=== PATIENT | male | born 1980 | race Caucasian/White ===

== ENCOUNTER 2016-06-29 08:37 | Emergency (ER) | payer MEDICARE, MEDICAID ==
[~2016-06-29] VITALS: Ht 180.3 cm; Wt 108.9 kg
[~2016-06-29 08:37] MED LIST: ENDO7.5T7 PO; IBUP400T OR; PRIL20CA OR; VITAMIN D50000 UNT OR
[2016-06-29] MEDS ORDERED: GABA-279 (08:48)
[2016-06-29] MEDS ORDERED: DRON10CA4 (08:48)
[2016-06-29] MEDS ORDERED: CITA20TA4 (08:48)
[2016-06-29] MEDS ORDERED: MUCI1TAB18 PO (08:48)
[2016-06-29] MEDS ORDERED: predniSONE 50 MG TAB PO ONE (09:00)
[2016-06-29] MEDS ORDERED: ALBUTEROL SULFATE 2.5 MG/0.5 ML INH NEB SOLN INH ONE (09:00)
[2016-06-29] MEDS ORDERED: IPRATROPIUM 0.5MG/ALBUTEROL 2.5MG INH SOL UD 3ML (DUONEB)(J7620) NEB ONE (09:00)
[2016-06-29] MEDS ORDERED: predniSONE 20 MG TAB As Ordered ONE (09:12)
[2016-06-29] MEDS ORDERED: PRED20TA PO (09:57)
[2016-06-29] MEDS ORDERED: ADVA115A INH (09:58)
[2016-06-29] MEDS ORDERED: ALBU17IN INH (09:58)
--- NOTE | 2016-06-29 09:59 | REP ---
CHEST: Two views. There is no evidence of acute infiltrate. No pleural effusion is seen. The heart is normal in size. The mediastinal silhouette is unremarkable. The visualized osseous structures are intact. IMPRESSION: No acute pulmonary disease. Signed by Maximino Villatoro MD 06/29/2016 07:57 P
[2016-06-29 10:04] VITALS: BP 138/83
== END 2016-06-29 10:09 | disposition home or self-care (01) ==
LOC: M ED 09:25
DX: J45.901 Unspecified asthma with (acute) exacerbation (principal); F41.9 Anxiety disorder, unspecified; F33.9 Major depressive disorder, recurrent, unspecified; G35 Multiple sclerosis; E07.9 Disorder of thyroid, unspecified; Z79.899 Other long term (current) drug therapy; Z79.51 Long term (current) use of inhaled steroids; F17.210 Nicotine dependence, cigarettes, uncomplicated

== ENCOUNTER 2016-07-10 01:22 | Emergency (ER) | payer MEDICARE, MEDICAID ==
[~2016-07-10] VITALS: Ht 180.3 cm; Wt 108.9 kg
[~2016-07-10 01:22] MED LIST changes: +ADVA115A INH; +ALBU17IN INH; +CITA20TA4; +DRON10CA4; +GABA-279; +MUCI1TAB18 PO; +PRED20TA PO
[2016-07-10] MEDS ORDERED: OLOPATADINE 0.1% OPHTH SOL 5ML(PATANOL) OD ONE (04:15)
[2016-07-10 04:34] VITALS: BP 119/78
== END 2016-07-10 04:38 | disposition home or self-care (01) ==
LOC: M ED 02:26
DX: H10.31 Unspecified acute conjunctivitis, right eye (principal); Z79.51 Long term (current) use of inhaled steroids; Z79.899 Other long term (current) drug therapy

== ENCOUNTER → 2016-07-19 | Outpatient (REF) | payer MEDICARE, MEDICAID ==
[2016-07-19 16:28] LABS: ALBUMIN 3.8 GM/DL (3.2-5.2); ALBUMIN/GLOBULIN RATIO 1.12 (1.00-1.93); ALKALINE PHOSPHATASE 82 U/L (45-117); ALT/SGPT 29 U/L (12-78); ANION GAP 7 MEQ/L (8-16); AST/SGOT 13 U/L (15-37); BILIRUBIN,TOTAL 0.3 MG/DL (0.2-1.0); BLOOD UREA NITROGEN 14 MG/DL (7-18); CALCIUM LEVEL 9.1 MG/DL (8.5-10.1); CARBON DIOXIDE LEVEL 29 MEQ/L (21-32); CHLORIDE LEVEL 103 MEQ/L (98-107); CREATININE FOR GFR 1.01 MG/DL (0.70-1.30); FREE T4 1.15 NG/DL (0.76-1.46); GLOMERULAR FILTRATION RATE > 60.0 (>60); GLUCOSE, FASTING 101 MG/DL (70-105); POTASSIUM SERUM 4.2 MEQ/L (3.5-5.1); SODIUM LEVEL 139 MEQ/L (136-145); TOTAL PROTEIN 7.2 GM/DL (6.4-8.2)
== END ==
LOC: M SFHCPLAZ 14:00
DX: E66.9 Obesity, unspecified (principal); E55.9 Vitamin D deficiency, unspecified; Z79.899 Other long term (current) drug therapy
CPT/HCPCS: 36415; 80053; 82306; 83036; 84439; 84443; G0463

== ENCOUNTER → 2016-09-11 | Outpatient (CLI) | payer MEDICARE, MEDICAID ==
[~2016-09-11] VITALS: Ht 180.3 cm; Wt 113.4 kg
[~2016-09-11] MED LIST changes: -DRON10CA4; +DRON10CA4 PO; +GILE1CAP PO; +LIDOCAINE 2% INJ 100 MG/5 ML SDV (FOR ANES.) As Ordered ONE; +NS 1,000 ML IV ONE; +PROPOFOL 200 MG/20 ML VIAL As Ordered ONE
--- NOTE | 2016-09-11 14:04 | ROOR ---
Patient Name: John Hatfield Procedure Date: 09/11/2016 1:53 PM Date of : 1980 Age: 35 Room: [facility] Gender: Male Note Status: Finalized Procedure: Upper GI endoscopy Indications: Heartburn Providers: Fred STRAUSS MD Referring MD: DOMINIC WONG Geovanni [facility] DOMINIC Cross Requesting Provider: Medicines: Monitored Anesthesia Care Complications: No immediate complications. Procedure: Pre-Anesthesia Assessment: - The heart rate, respiratory rate, oxygen saturations, blood pressure, adequacy of pulmonary ventilation, and response to care were monitored throughout the procedure. The Endoscope was introduced through the mouth, and advanced to the second part of duodenum. The upper GI endoscopy was accomplished without difficulty. The patient tolerated the procedure well. Findings: The esophagus was normal. The stomach was normal. The examined duodenum was normal. Impression: - Normal esophagus. - Normal stomach. - Normal examined duodenum. - No specimens collected. Recommendation: - Use Prilosec (omeprazole) 20 mg PO daily for 3 months. - Follow an antireflux regimen. - (the script was sent to your pharmacy on file) Fred Strauss MD Fred STRAUSS MD 09/11/2016 2:04:35 PM This report has been signed electronically. Number of Addenda: 0 Note Initiated On: 09/11/2016 1:53 PM Estimated Blood Loss: Estimated blood loss: none.
[2016-09-11 14:25] VITALS: BP 114/82
== END | disposition home or self-care (01) ==
LOC: M OPP 12:40
PROVIDERS: ATTEND Internal Medicine Gastroenterology
DX: R12 Heartburn (principal); M25.60 Stiffness of unspecified joint, not elsewhere classified; Z87.19 Personal history of other diseases of the digestive system; G35 Multiple sclerosis; F32.9 Major depressive disorder, single episode, unspecified; F41.9 Anxiety disorder, unspecified; J45.909 Unspecified asthma, uncomplicated; R06.83 Snoring; G47.30 Sleep apnea, unspecified; Z79.899 Other long term (current) drug therapy; Z88.8 Allergy status to other drugs, medicaments and biological substances

== ENCOUNTER → 2017-03-11 | Outpatient (CLI) | payer MEDICARE, MEDICAID ==
[~2017-03-11] MED LIST changes: -ADVA115A INH; -ALBU17IN INH; -CITA20TA4; -DRON10CA4 PO; -ENDO7.5T7 PO; -GABA-279; -GILE1CAP PO; -IBUP400T OR; -LIDOCAINE 2% INJ 100 MG/5 ML SDV (FOR ANES.) As Ordered ONE; -MUCI1TAB18 PO; -NS 1,000 ML IV ONE; -PRED20TA PO; -PRIL20CA OR; +PROHANCE 279.3MG/ML 15ML VIAL (A9576) As Ordered; +PROHANCE 279.3MG/ML 5ML VIAL (A9576) As Ordered; -PROPOFOL 200 MG/20 ML VIAL As Ordered ONE; -VITAMIN D50000 UNT OR
== END ==
LOC: M RAD 12:42
DX: G35 Multiple sclerosis (principal); M47.812 Spondylosis without myelopathy or radiculopathy, cervical region
CPT/HCPCS: A9576

== ENCOUNTER → 2018-04-25 | Outpatient (CLI) | payer MEDICARE, MEDICAID ==
[~2018-04-25] MED LIST changes: +ADVA115A INH; +ALBU17IN INH; +CITA20TA4; +DRON1CAP3 PO; +ENDO7.5T7 PO; +GABA-1171; +GILE1CAP PO; +IBUP400T OR; +MUCI1TAB18 PO; +PRED20TA PO; +PRIL20CA OR; -PROHANCE 279.3MG/ML 15ML VIAL (A9576) As Ordered; +PROHANCE 279.3MG/ML 15ML VIAL (A9576) As Ordered ONE; -PROHANCE 279.3MG/ML 5ML VIAL (A9576) As Ordered; +PROHANCE 279.3MG/ML 5ML VIAL (A9576) As Ordered ONE; +VITAMIN D50000 UNT OR
--- NOTE | 2018-04-25 18:48 | REP ---
MRI brain without and with IV gadolinium: History: Multiple sclerosis. Comparison study: 11 March 2017. Technique: Axial and sagittal imaging planes are utilized for T1 and T2-weighted scans. Sequences include spin-echo, fast spin echo, FLAIR, and diffusion weighted sequences. Gadolinium enhancement dose is 20 ml of intravenous ProHance. MRI findings: Bony calvarium remains intact. Craniocervical junction and upper cervical cord are normal. No intraorbital or paranasal sinus disease is appreciated. There are several foci of periventricular and subcortical T2 hyperintensity in the parietal lobes and frontal lobes. These are unchanged in number in the interval since the March 11, 2017 study. No change in size. There is no corresponding T1 hypointensity. There is no evidence acute ischemia. No extra-axial fluid collection or mass lesion is seen. Postcontrast images show no abnormal gadolinium enhancement in any of the T2 hyperintense lesions. No other abnormal gadolinium enhancement is seen. Impression: Findings consistent with MS. Findings are stable from the most recent prior study of 11 March 2017. Electronically Signed by Rodolfo Castellanos MD 04/25/2018 07:09 P
--- NOTE | 2018-04-28 08:50 | REP ---
MR CERVICAL SPINE WITHOUT CONTRAST: HISTORY: Multiple sclerosis. CONTRAST: ProHance 20 mL. COMPARISON: 03/11/2017. A disc bulge is present at the C4-5 level. There is minimal effacement of the thecal sac without spinal cord compression. Uncinate process hypertrophy is present on the right. This produces minimal narrowing of the right C4 neural foramen. The left C4 neural foramen is patent. A disc bugle and small right paracentral disc extrusion are present at the C6-7 level. The disc extrusion is slightly increased in sized. There is minimal effacement of the thecal sac without spinal cord compression. The C6 neural foramina are patent. There is no other disc bulge or herniation. The remaining neural foramina are patent. The spinal cord is normal in signal intensity. There is no abdominal enhancement. The C5-6 intervertebral disc is decreased in height consistent with disc degeneration. Normal signal intensity is present in the cervical vertebral bodies. IMPRESSION: There is cervical spondylosis at the C4-5 through C6-7 levels without spinal cord compression. The disc extrusion at C6-7 level is slightly increased in size. Electronically Signed by Mayito Denney MD 04/28/2018 08:57 A
== END ==
LOC: M RAD 16:02
PROVIDERS: ATTEND Nurse Practitioner
DX: M47.892 Other spondylosis, cervical region (principal); M50.223 Other cervical disc displacement at C6-C7 level; G35 Multiple sclerosis
CPT/HCPCS: 70553; 72156; A9576

== ENCOUNTER → 2018-09-12 | Outpatient (CLI) | payer MEDICARE, MEDICAID ==
[~2018-09-12] MED LIST changes: -CITA20TA4; +CITA20TA6; +PROAAER10 INH; -PROHANCE 279.3MG/ML 15ML VIAL (A9576) As Ordered ONE; -PROHANCE 279.3MG/ML 5ML VIAL (A9576) As Ordered ONE; +TYSA1INJ IV; +VITA100T15 PO
--- NOTE | 2018-09-12 14:10 | REP ---
Right foot four views : There is no fracture or dislocation. Mineralization and joint spaces are normal. There are no calcifications or foreign bodies. Impression: Negative right foot . Electronically Signed by Maximino Muñiz MD 09/12/2018 02:02 P
== END ==
LOC: M LRY 13:22
PROVIDERS: ATTEND Physician Assistant
DX: M79.671 Pain in right foot (principal)
CPT/HCPCS: 73630; G0463

== ENCOUNTER 2019-01-01 07:36 | Outpatient (CLI) | payer MEDICARE, MEDICAID ==
[~2019-01-01] VITALS: Ht 180.3 cm; Wt 108.8 kg
[~2019-01-01 07:36] MED LIST changes: -PROAAER10 INH; -TYSA1INJ IV; -VITA100T15 PO
[2019-01-01 07:40] VITALS: BP 122/56
[2019-01-01] MEDS ORDERED: NATALIZUMAB OVER 1 HOUR IV ONE ×2 (08:00)
[2019-01-01] MEDS ORDERED: TYSA1INJ IV (08:37)
[2019-01-01] MEDS ORDERED: VITA100T15 PO (08:38)
[2019-01-01] MEDS ORDERED: PROAAER10 INH (08:40)
[2019-01-01 09:15] VITALS: BP 117/67
[2019-01-01 10:00] VITALS: BP 115/60
== END 2019-01-01 10:00 | disposition home or self-care (01) ==
LOC: M INFU 07:36
PROVIDERS: ATTEND Nurse Practitioner
DX: G35 Multiple sclerosis (principal)
CPT/HCPCS: 96365; J2323

== ENCOUNTER 2019-01-30 07:52 | Outpatient (CLI) | payer MEDICARE, MEDICAID ==
[~2019-01-30] VITALS: Ht 180.3 cm; Wt 108.8 kg
[~2019-01-30 07:52] MED LIST changes: +PROAAER10 INH; +TYSA1INJ IV; +VITA100T15 PO
[2019-01-30 08:20] VITALS: BP 130/90
[2019-01-30] MEDS ORDERED: NATALIZUMAB OVER 1 HOUR IV ONE ×2 (08:30)
[2019-01-30 10:15] VITALS: BP 125/81
[2019-01-30 11:15] VITALS: BP 133/82
== END 2019-01-30 11:20 | disposition home or self-care (01) ==
LOC: M INFU 07:52
PROVIDERS: ATTEND Nurse Practitioner
DX: G35 Multiple sclerosis (principal)
CPT/HCPCS: 96365; J2323

== ENCOUNTER 2019-02-27 07:35 | Outpatient (CLI) | payer MEDICARE, MEDICAID ==
[~2019-02-27] VITALS: Ht 180.3 cm; Wt 108.8 kg
[2019-02-27 07:55] VITALS: BP 124/66
[2019-02-27] MEDS ORDERED: NATALIZUMAB OVER 1 HOUR IV ONE ×2 (09:00)
[2019-02-27 09:24] VITALS: BP 122/80
[2019-02-27 10:20] VITALS: BP 119/81
== END 2019-02-27 13:03 | disposition home or self-care (01) ==
LOC: M INFU 07:35
PROVIDERS: ATTEND Nurse Practitioner
DX: G35 Multiple sclerosis (principal)
CPT/HCPCS: 96365; J2323

== ENCOUNTER 2019-03-27 09:22 | Outpatient (CLI) | payer MEDICARE, MEDICAID ==
[~2019-03-27] VITALS: Ht 180.3 cm; Wt 108.9 kg
[2019-03-27 09:25] VITALS: BP 122/71
[2019-03-27] MEDS ORDERED: NATALIZUMAB OVER 1 HOUR IV ONE ×2 (10:00)
[2019-03-27 12:10] VITALS: BP_SYST 108; BP_SYST 115; BP_DIAS 64; BP_DIAS 65
== END 2019-03-27 12:10 | disposition home or self-care (01) ==
LOC: M INFU 09:22
PROVIDERS: ATTEND Nurse Practitioner
DX: G35 Multiple sclerosis (principal)
CPT/HCPCS: 96365; J2323

== ENCOUNTER 2019-04-24 08:51 | Outpatient (CLI) | payer MEDICARE, MEDICAID ==
[~2019-04-24] VITALS: Ht 185.4 cm; Wt 108.9 kg
[2019-04-24 09:00] VITALS: BP 121/64
[2019-04-24] MEDS ORDERED: DRON1CAP3 PO (09:04)
[2019-04-24] MEDS ORDERED: NATALIZUMAB OVER 1 HOUR IV ONE ×2 (09:45)
[2019-04-24 11:10] VITALS: BP 112/77
[2019-04-24 12:15] VITALS: BP 134/74
== END 2019-04-24 12:15 | disposition home or self-care (01) ==
LOC: M INFU 08:51
PROVIDERS: ATTEND Nurse Practitioner
DX: G35 Multiple sclerosis (principal)
CPT/HCPCS: 96365; J2323

== ENCOUNTER 2019-05-28 13:17 | Outpatient (CLI) | payer MEDICARE, MEDICAID ==
[~2019-05-28] VITALS: Ht 185.4 cm; Wt 108.9 kg
[2019-05-28 13:20] VITALS: BP 128/81
[2019-05-28] MEDS ORDERED: NATALIZUMAB OVER 1 HOUR IV ONE ×2 (13:45)
[2019-05-28 14:50] VITALS: BP 134/75
[2019-05-28 15:45] VITALS: BP 135/82
== END 2019-05-28 15:45 | disposition home or self-care (01) ==
LOC: M INFU 13:17
PROVIDERS: ATTEND Physician Assistant
DX: G35 Multiple sclerosis (principal)
CPT/HCPCS: 96365; J2323

== ENCOUNTER → 2019-06-19 | Outpatient (CLI) | payer MEDICARE, MEDICAID ==
[~2019-06-19] MED LIST changes: +PROHANCE 279.3MG/ML 15ML VIAL As Ordered ONE; +PROHANCE 279.3MG/ML 5ML VIAL As Ordered ONE
--- NOTE | 2019-06-19 15:56 | REP ---
MRI CERVICAL SPINE WITHOUT AND WITH IV CONTRAST: HISTORY: MS. Comparison MRI cervical spine study April 25, 2018. TECHNIQUE: Sagittal and axial T1- and T2-weighted scans are acquired in the usual fashion with and without fat saturation. Sequences include spin echo, turbo spin echo, and STIR imaging sequences. Gadolinium enhancement dose is 20 mL of intravenous ProHance. MRI FINDINGS: There is straightening of the normal cervical lordosis. Cervical vertebral body heights are preserved. There is no bony destructive lesion. Craniocervical junction is unremarkable. The cervical cord is normal in course and caliber. On T2-weighted scans, there is a subtle area of T2 hyperintensity along the ventral aspect of the cord just to the left of midline at the level of the C5 vertebral body. This is felt to be visible in retrospect and is unchanged. It is 2 mm anteroposterior thickness. It is not definitely seen on sagittal images. No cord enhancement is seen here. No cord enhancement is seen elsewhere. No abnormal gadolinium enhancement is observed on postcontrast images. There is minimal disc bulging at C2-3 and at C3-4 unchanged. At C4-5, there is also minimal disc bulging with early uncovertebral spurring on the right. This is unchanged. At C5-C6, there is no evidence of disc protrusion or foraminal narrowing. At C6-C7, there is a right posterior focal disc protrusion again noted which compresses the right ventral margin of the thecal sac and flattens the right ventral margin of the cord. This actually is a little smaller than on the prior study of April 25, 2018. At C7-T1 there is no significant finding. IMPRESSION: Improvement noted in the size of the right sided C6-7 disc protrusion. Straightening persist. Mild degenerative spondylosis changes. There is a tiny and somewhat equivocal area of increased signal intensity the ventral surface of the cord just to the left of midline at the superior aspect of C5 visible in retrospect and unchanged from the comparison study. No abnormal cord enhancement. Electronically Signed by Rodolfo Castellanos MD 06/19/2019 04:20 P
--- NOTE | 2019-06-19 16:15 | REP ---
MRI BRAIN WITHOUT AND WITH IV GADOLINIUM: HISTORY: Mass. Comparison MRI study is from April 25, 2018. The gadolinium enhancement dose 20 mL of intravenous ProHance. TECHNIQUE: Axial and sagittal imaging planes are utilized for T1- and T2-weighted scans. Sequences include spin echo, fast spin echo, FLAIR, and diffusion weighted sequences. MRI FINDINGS: Craniocervical junction and upper cervical cord are unremarkable. On FLAIR and T2-weighted scans, there are several foci of periventricular T2 hyperintensity consistent with demyelinating lesions. These are unchanged from the comparison study. Veins are distributed in the temporal and parietal lobes and the right frontal lobe unchanged. There is no lesion showing restricted diffusion or contrast enhancement. Contrast enhanced study shows enhancement in expected vascular structures. No abnormal contrast enhancement is seen. No new T2 lesion is seen. Study is otherwise unremarkable. IMPRESSION: Findings consistent with multiple sclerosis, stable findings from the prior study. Electronically Signed by Rodolfo Castellanos MD 06/19/2019 04:20 P
== END ==
LOC: M RAD 13:00
PROVIDERS: ATTEND Nurse Practitioner
DX: G35 Multiple sclerosis (principal)
CPT/HCPCS: 70553; 72156; A9576

== ENCOUNTER 2019-06-25 10:39 | Outpatient (CLI) | payer MEDICARE, MEDICAID ==
[~2019-06-25] VITALS: Ht 185.4 cm; Wt 108.8 kg
[~2019-06-25 10:39] MED LIST changes: -PROHANCE 279.3MG/ML 15ML VIAL As Ordered ONE; -PROHANCE 279.3MG/ML 5ML VIAL As Ordered ONE
[2019-06-25 10:40] VITALS: BP 123/73
[2019-06-25] MEDS ORDERED: NATALIZUMAB OVER 1 HOUR IV ONE ×2 (10:45)
[2019-06-25 12:30] VITALS: BP 113/73
[2019-06-25 13:30] VITALS: BP 118/69
== END 2019-06-25 11:30 | disposition home or self-care (01) ==
LOC: M INFU 10:39
PROVIDERS: ATTEND Nurse Practitioner
DX: G35 Multiple sclerosis (principal)
CPT/HCPCS: 96365; J2323

== ENCOUNTER 2019-07-23 09:30 | Outpatient (CLI) | payer MEDICARE, MEDICAID ==
[~2019-07-23] VITALS: Ht 185.4 cm; Wt 108.8 kg
[2019-07-23 09:36] VITALS: BP 124/65
[2019-07-23] MEDS ORDERED: NATALIZUMAB OVER 1 HOUR IV ONE ×2 (09:45)
[2019-07-23 11:00] VITALS: BP 122/69
[2019-07-23 11:58] VITALS: BP 109/74
== END 2019-07-23 12:00 | disposition home or self-care (01) ==
LOC: M INFU 09:30
PROVIDERS: ATTEND Nurse Practitioner
DX: G35 Multiple sclerosis (principal)
CPT/HCPCS: 96365; J2323

== ENCOUNTER 2019-08-20 15:03 | Outpatient (CLI) | payer MEDICARE, MEDICAID ==
[~2019-08-20] VITALS: Ht 190.5 cm; Wt 108.9 kg
[2019-08-20 15:21] VITALS: BP 122/75
[2019-08-20] MEDS ORDERED: NATALIZUMAB OVER 1 HOUR IV ONE ×2 (15:30)
[2019-08-20 16:35] VITALS: BP 125/84
[2019-08-20 17:35] VITALS: BP 165/84
== END 2019-08-20 17:30 | disposition home or self-care (01) ==
LOC: M INFU 15:03
PROVIDERS: ATTEND Nurse Practitioner
DX: G35 Multiple sclerosis (principal)
CPT/HCPCS: 96365; J2323

== ENCOUNTER 2019-09-17 14:50 | Outpatient (CLI) | payer MEDICARE, MEDICAID ==
[2019-09-17] MEDS ORDERED: NATALIZUMAB ONE (15:50)
== END 2019-09-17 17:30 | disposition home or self-care (01) ==
LOC: M INFU 14:50
PROVIDERS: ATTEND Nurse Practitioner
DX: G35 Multiple sclerosis (principal)
CPT/HCPCS: 96365; J2323

== ENCOUNTER → 2019-10-09 | Outpatient (REF) | payer MEDICARE, MEDICAID ==
[2019-10-09 19:17] LABS: BASO # 0.1 10^3/uL (0.0-0.2); EOS # 0.8 10^3/uL (0.0-0.5); EOS % 7.4 % (0.0-3.0); HEMATOCRIT 43.9 % (42.0-52.0); HEMOGLOBIN 14.7 g/dl (13.5-17.5); LYMPH # 2.5 10^3/uL (1.5-5.0); LYMPH % 24.1 % (24.0-44.0); MEAN CORPUSCULAR HEMOGLOBIN 30.1 pg (27.0-33.0); MEAN CORPUSCULAR HGB CONC 33.5 g/dl (32.0-36.5); MONO # 0.7 10^3/uL (0.0-0.8); MONO % 7.3 % (0.0-5.0); NEUTROPHILS # 6.1 10^3/uL (1.5-8.5); NEUTROPHILS % 59.9 % (36.0-66.0); PLATELET COUNT, AUTOMATED 244 10^3/uL (150-450); RED BLOOD COUNT 4.88 10^6/uL (4.30-6.10); WHITE BLOOD COUNT 10.2 10^3/uL (4.0-10.0)
[2019-10-09 20:12] LABS: ALBUMIN 4.1 GM/DL (3.2-5.2); ALT/SGPT 22 U/L (12-78); BILIRUBIN,TOTAL 0.3 MG/DL (0.2-1.0); BLOOD UREA NITROGEN 15 MG/DL (7-18); CALCIUM LEVEL 9.4 MG/DL (8.5-10.1); CARBON DIOXIDE LEVEL 30 MEQ/L (21-32); CHLORIDE LEVEL 104 MEQ/L (98-107); GLOMERULAR FILTRATION RATE > 60.0 (>60); GLUCOSE, FASTING 79 MG/DL (70-100); POTASSIUM SERUM 4.4 MEQ/L (3.5-5.1); SODIUM LEVEL 137 MEQ/L (136-145); TOTAL PROTEIN 7.3 GM/DL (6.4-8.2)
[2019-10-09 20:25] LABS: TOTAL 25(OH) VITAMIN D 37.3 NG/ML (30.0-100.0)
== END ==
LOC: M LRY 17:46
PROVIDERS: ATTEND Physician Assistant
DX: G35 Multiple sclerosis (principal); E55.9 Vitamin D deficiency, unspecified

== ENCOUNTER 2019-10-15 09:26 | Outpatient (CLI) | payer MEDICARE, MEDICAID ==
[~2019-10-15] VITALS: Ht 182.9 cm; Wt 108.0 kg
[2019-10-15 10:06] VITALS: BP 117/86
[2019-10-15 10:13] VITALS: BP 117/66
[2019-10-15 11:20] VITALS: BP 123/81
[2019-10-15 12:20] VITALS: BP 127/86
[2019-10-15] MEDS ORDERED: NATALIZUMAB OVER 1 HOUR IV ONE ×2 (15:00)
== END 2019-10-15 12:20 | disposition home or self-care (01) ==
LOC: M INFU 09:26
PROVIDERS: ATTEND Nurse Practitioner
DX: G35 Multiple sclerosis (principal)
CPT/HCPCS: 96365; J2323

== ENCOUNTER 2019-11-12 15:07 | Outpatient (CLI) | payer MEDICARE, MEDICAID ==
[~2019-11-12] VITALS: Ht 185.4 cm; Wt 108.6 kg
[~2019-11-12 15:07] MED LIST changes: +NATALIZUMAB OVER 1 HOUR IV ONE
[2019-11-12 15:15] VITALS: BP 136/88
[2019-11-12 17:00] VITALS: BP 114/67
== END 2019-11-12 17:00 | disposition home or self-care (01) ==
LOC: M INFU 15:07
PROVIDERS: ATTEND Nurse Practitioner
DX: G35 Multiple sclerosis (principal)
CPT/HCPCS: 96365; J2323

== ENCOUNTER → 2019-12-03 | Outpatient (REF) | payer MEDICARE, MEDICAID ==
[~2019-12-03] MED LIST changes: -NATALIZUMAB OVER 1 HOUR IV ONE
== END ==
LOC: M LAB REF 16:16
PROVIDERS: ATTEND Physician Assistant
DX: Z11.3 Encounter for screening for infections with a predominantly sexual mode of transmission (principal)

== ENCOUNTER 2019-12-10 15:02 | Outpatient (CLI) | payer MEDICARE, MEDICAID ==
[~2019-12-10] VITALS: Ht 180.3 cm; Wt 96.8 kg
[~2019-12-10 15:02] MED LIST changes: +ALBUTEROL SULFATE 2.5 MG/0.5 ML INH NEB SOLN INH PRN; +EPINEPHrine INJ 1 MG/ML 1ML AMP IM PRN; +NATALIZUMAB OVER 1 HOUR IV ONE; +diphenhydrAMINE 50MG/ML VIAL (J1200) IV PRN; +methylPREDNISolone 125MG 2ML VIAL IV PRN
[2019-12-10 15:10] VITALS: BP 110/67
[2019-12-10 16:39] VITALS: BP 110/62
== END 2019-12-10 16:45 | disposition home or self-care (01) ==
LOC: M INFU 15:02
PROVIDERS: ATTEND Nurse Practitioner
DX: G35 Multiple sclerosis (principal)
CPT/HCPCS: 96365; J2323

== ENCOUNTER 2020-01-07 14:55 | Outpatient (CLI) | payer MEDICARE, MEDICAID ==
[~2020-01-07] VITALS: Ht 180.3 cm; Wt 96.6 kg
[~2020-01-07 14:55] MED LIST changes: -NATALIZUMAB OVER 1 HOUR IV ONE
[2020-01-07] MEDS ORDERED: NS 1,000 ML IV SCH (15:00)
[2020-01-07] MEDS ORDERED: NATALIZUMAB OVER 1 HOUR IV ONE ×2 (15:00)
[2020-01-07 15:33] VITALS: BP 107/53
[2020-01-07 15:37] VITALS: BP 107/53
== END 2020-01-07 16:27 | disposition home or self-care (01) ==
LOC: M INFU 14:55
PROVIDERS: ATTEND Nurse Practitioner
DX: G35 Multiple sclerosis (principal)
CPT/HCPCS: 96365; J2323

== ENCOUNTER 2020-02-04 15:12 | Outpatient (CLI) | payer MEDICARE, MEDICAID ==
[~2020-02-04] VITALS: Ht 177.8 cm; Wt 96.6 kg
[~2020-02-04 15:12] MED LIST changes: +NATALIZUMAB OVER 1 HOUR IV ONE; +NS 1,000 ML IV SCH
[2020-02-04 15:27] VITALS: BP 122/73
[2020-02-04 16:52] VITALS: BP 122/71
== END 2020-02-04 17:00 | disposition home or self-care (01) ==
LOC: M INFU 15:12
PROVIDERS: ATTEND Nurse Practitioner
DX: G35 Multiple sclerosis (principal)
CPT/HCPCS: 96365; J2323

== ENCOUNTER 2020-03-03 14:49 | Outpatient (CLI) | payer MEDICARE, MEDICAID ==
[~2020-03-03] VITALS: Ht 180.3 cm; Wt 96.6 kg
[~2020-03-03 14:49] MED LIST changes: -NATALIZUMAB OVER 1 HOUR IV ONE; -NS 1,000 ML IV SCH
[2020-03-03] MEDS ORDERED: NS 1,000 ML IV SCH (15:00)
[2020-03-03] MEDS ORDERED: NATALIZUMAB OVER 1 HOUR IV ONE ×2 (15:00)
[2020-03-03 15:55] VITALS: BP 114/68
[2020-03-03 17:14] VITALS: BP 123/73
== END 2020-03-03 17:15 | disposition home or self-care (01) ==
LOC: M INFU 14:49
PROVIDERS: ATTEND Nurse Practitioner
DX: G35 Multiple sclerosis (principal)
CPT/HCPCS: 96365; J2323

== ENCOUNTER 2020-03-31 13:03 | Outpatient (CLI) | payer MEDICARE, MEDICAID ==
[~2020-03-31] VITALS: Ht 180.3 cm; Wt 96.6 kg
[~2020-03-31 13:03] MED LIST changes: +NATALIZUMAB OVER 1 HOUR IV ONE; +NS 1,000 ML IV SCH
[2020-03-31 13:18] VITALS: BP 129/73
[2020-03-31 13:20] VITALS: BP 129/73
[2020-03-31 14:38] VITALS: BP 137/76
[2020-03-31 14:40] VITALS: BP 137/76
== END 2020-03-31 14:45 | disposition home or self-care (01) ==
LOC: M INFU 13:03
PROVIDERS: ATTEND Nurse Practitioner
DX: G35 Multiple sclerosis (principal)
CPT/HCPCS: 96365; J2323

== ENCOUNTER → 2020-04-11 | Outpatient (CLI) | payer MEDICARE, MEDICAID ==
[~2020-04-11] MED LIST changes: -ALBUTEROL SULFATE 2.5 MG/0.5 ML INH NEB SOLN INH PRN; -EPINEPHrine INJ 1 MG/ML 1ML AMP IM PRN; -NATALIZUMAB OVER 1 HOUR IV ONE; -NS 1,000 ML IV SCH; -diphenhydrAMINE 50MG/ML VIAL (J1200) IV PRN; -methylPREDNISolone 125MG 2ML VIAL IV PRN
[2020-04-11 16:57] LABS: BASO # 0.1 10^3/uL (0.0-0.2); BASO % 0.8 % (0.0-1.0); EOS # 0.9 10^3/uL (0.0-0.5); EOS % 9.4 % (0.0-3.0); HEMATOCRIT 39.6 % (42.0-52.0); HEMOGLOBIN 13.9 g/dl (13.5-17.5); LYMPH # 2.9 10^3/uL (1.5-5.0); LYMPH % 32.3 % (24.0-44.0); MEAN CORPUSCULAR HEMOGLOBIN 31.4 pg (27.0-33.0); MEAN CORPUSCULAR HGB CONC 35.1 g/dl (32.0-36.5); MEAN CORPUSCULAR VOLUME 89.6 fl (80.0-96.0); MONO # 0.8 10^3/uL (0.0-0.8); MONO % 8.9 % (2.0-8.0); NEUTROPHILS # 4.2 10^3/uL (1.5-8.5); PLATELET COUNT, AUTOMATED 198 10^3/uL (150-450); RED BLOOD COUNT 4.42 10^6/uL (4.30-6.10)
[2020-04-11 17:29] LABS: ALBUMIN 4.1 GM/DL (3.2-5.2); ALT/SGPT 47 U/L (12-78); BILIRUBIN,TOTAL 0.4 MG/DL (0.2-1.0); BLOOD UREA NITROGEN 18 MG/DL (7-18); CALCIUM LEVEL 9.4 MG/DL (8.5-10.1); CARBON DIOXIDE LEVEL 32 MEQ/L (21-32); CHLORIDE LEVEL 103 MEQ/L (98-107); CREATININE FOR GFR 0.78 MG/DL (0.70-1.30); GLOMERULAR FILTRATION RATE > 60.0 (>60); GLUCOSE, FASTING 83 MG/DL (70-100); IMMUNOGLOBULIN G 953 MG/DL (681-1648); IMMUNOGLOBULIN M 25.9 MG/DL (40-230); SODIUM LEVEL 141 MEQ/L (136-145); TOTAL 25(OH) VITAMIN D 25.6 NG/ML (30.0-100.0); TOTAL PROTEIN 7.2 GM/DL (6.4-8.2)
== END ==
LOC: M LAB 16:14
PROVIDERS: ATTEND Physician Assistant
DX: G35 Multiple sclerosis (principal); E55.9 Vitamin D deficiency, unspecified

== ENCOUNTER → 2020-04-12 | Outpatient (CLI) | payer MEDICARE, MEDICAID ==
--- NOTE | 2020-04-12 15:38 | REP ---
INDICATION: NEW SOB,COUGH. COMPARISON: Comparison chest x-ray June 29, 2016. TECHNIQUE: Two views.. FINDINGS: The lungs are well inflated and free of infiltrate. The pleural angles are sharp. The heart size is normal. Pulmonary vasculature is not increased. No significant bony abnormality is seen. IMPRESSION: Negative chest x-ray. <Electronically signed by Porfirio Castellanos > 04/12/20 [id number]
== END ==
LOC: M RAD 12:10
PROVIDERS: ATTEND Physician Assistant
DX: R06.02 Shortness of breath (principal); R05 Cough

== ENCOUNTER 2020-04-28 12:52 | Outpatient (CLI) | payer MEDICARE, MEDICAID ==
[~2020-04-28] VITALS: Ht 180.3 cm; Wt 96.6 kg
[~2020-04-28 12:52] MED LIST changes: +ALBUTEROL SULFATE 2.5 MG/0.5 ML INH NEB SOLN INH PRN; +EPINEPHrine INJ 1 MG/ML 1ML AMP IM PRN; +diphenhydrAMINE 50MG/ML VIAL (J1200) IV PRN; +methylPREDNISolone 125MG 2ML VIAL IV PRN
[2020-04-28] MEDS ORDERED: NATALIZUMAB OVER 1 HOUR IV ONE ×2 (13:00)
[2020-04-28 13:16] VITALS: BP 122/80
[2020-04-28 13:20] VITALS: BP 122/80
[2020-04-28 14:25] VITALS: BP 135/89
== END 2020-04-28 14:25 | disposition home or self-care (01) ==
LOC: M INFU 12:52
PROVIDERS: ATTEND Nurse Practitioner
DX: G35 Multiple sclerosis (principal)
CPT/HCPCS: 96365; J2323

== ENCOUNTER → 2020-05-27 | Outpatient (REF) | payer MEDICARE, MEDICAID ==
[~2020-05-27] MED LIST changes: -ALBUTEROL SULFATE 2.5 MG/0.5 ML INH NEB SOLN INH PRN; -EPINEPHrine INJ 1 MG/ML 1ML AMP IM PRN; -diphenhydrAMINE 50MG/ML VIAL (J1200) IV PRN; -methylPREDNISolone 125MG 2ML VIAL IV PRN
[2020-05-27 12:28] LABS: SEMEN APPEARANCE OPAQUE (OPAQUE); SEMEN VISCOSITY LIQUID (LIQUID); SEMEN VOLUME 4.5 ML (2.0-5.0); SEMEN WBC <=1 M/ml (<=1 M/ml)
== END ==
LOC: M LAB REF 12:20
PROVIDERS: ATTEND Specialist
DX: N46.9 Male infertility, unspecified (principal)

== ENCOUNTER 2020-05-31 07:48 | Outpatient (CLI) | payer MEDICARE, MEDICAID ==
[~2020-05-31] VITALS: Ht 180.3 cm; Wt 96.6 kg
[2020-05-31] MEDS ORDERED: NATALIZUMAB OVER 1 HOUR IV ONE ×2 (08:00)
[2020-05-31 08:19] VITALS: BP 128/76
[2020-05-31 09:28] VITALS: BP 130/81
== END 2020-05-31 09:45 | disposition home or self-care (01) ==
LOC: M INFU 07:48
PROVIDERS: ATTEND Nurse Practitioner
DX: G35 Multiple sclerosis (principal)
CPT/HCPCS: 96365; J2323

== ENCOUNTER → 2020-06-13 | Outpatient (REF) | payer MEDICARE, MEDICAID ==
[2020-06-13 14:05] LABS: SEMEN APPEARANCE OPAQUE (OPAQUE); SEMEN VISCOSITY LIQUID (LIQUID); SEMEN VOLUME 5.2 ML (2.0-5.0); SEMEN WBC <=1 M/ml (<=1 M/ml)
== END ==
LOC: M LAB REF 13:56
PROVIDERS: ATTEND Specialist
DX: N46.9 Male infertility, unspecified (principal)

== ENCOUNTER 2020-06-23 13:05 | Outpatient (CLI) | payer MEDICARE, MEDICAID ==
[~2020-06-23] VITALS: Ht 180.3 cm; Wt 96.8 kg
[~2020-06-23 13:05] MED LIST changes: +NATALIZUMAB OVER 1 HOUR IV ONE
[2020-06-23 13:33] VITALS: BP 129/77
[2020-06-23 14:36] VITALS: BP 129/88
== END 2020-06-23 14:40 | disposition home or self-care (01) ==
LOC: M INFU 13:05
PROVIDERS: ATTEND Nurse Practitioner
DX: G35 Multiple sclerosis (principal)
CPT/HCPCS: 96365; J2323

== ENCOUNTER 2020-07-26 15:09 | Outpatient (CLI) | payer MEDICARE, OTHER ==
[~2020-07-26] VITALS: Ht 180.3 cm; Wt 96.8 kg
[2020-07-26 15:57] VITALS: BP 169/90
[2020-07-26 17:08] VITALS: BP 137/96
== END 2020-07-26 17:10 | disposition home or self-care (01) ==
LOC: M INFU 15:09
PROVIDERS: ATTEND Nurse Practitioner
DX: G35 Multiple sclerosis (principal)
CPT/HCPCS: 96365; J2323

== ENCOUNTER 2020-08-26 09:52 | Outpatient (CLI) | payer MEDICARE, OTHER ==
[~2020-08-26] VITALS: Ht 180.3 cm; Wt 96.6 kg
[2020-08-26 10:00] VITALS: BP 131/76
[2020-08-26 11:45] VITALS: BP_SYST 131; BP_SYST 138; BP_DIAS 76; BP_DIAS 78
== END 2020-08-26 11:45 | disposition home or self-care (01) ==
LOC: M INFU 09:52
PROVIDERS: ATTEND Physician Assistant
DX: G35 Multiple sclerosis (principal)
CPT/HCPCS: 96365; J2323

== ENCOUNTER 2020-09-20 15:49 | Outpatient (CLI) | payer MEDICARE, OTHER ==
[~2020-09-20] VITALS: Ht 180.3 cm; Wt 96.6 kg
[2020-09-20 15:57] VITALS: BP 120/70
[2020-09-20 16:57] VITALS: BP 118/75
== END 2020-09-20 17:00 | disposition home or self-care (01) ==
LOC: M INFU 15:49
PROVIDERS: ATTEND Physician Assistant
DX: G35 Multiple sclerosis (principal)
CPT/HCPCS: 96365; J2323

== ENCOUNTER 2020-10-18 15:19 | Outpatient (CLI) | payer MEDICARE, OTHER ==
[~2020-10-18] VITALS: Ht 180.3 cm; Wt 96.6 kg
[2020-10-18 15:31] VITALS: BP 129/81
[2020-10-18 17:09] VITALS: BP 120/77
== END 2020-10-18 17:05 | disposition home or self-care (01) ==
LOC: M INFU 15:19
PROVIDERS: ATTEND Physician Assistant
DX: G35 Multiple sclerosis (principal)
CPT/HCPCS: 96365; J2323

== ENCOUNTER → 2020-10-26 | Outpatient (CLI) | payer MEDICARE, OTHER ==
[~2020-10-26] MED LIST changes: -NATALIZUMAB OVER 1 HOUR IV ONE; +PROHANCE 279.3MG/ML 15ML VIAL ONE
--- NOTE | 2020-10-26 12:43 | REPVR ---
PROCEDURE INFORMATION: Exam: MR Head Without and With Contrast Exam date and time: 10/26/2020 11:37 AM Age: 39 years old Clinical indication: Condition or disease; Multiple sclerosis; Additional info: Ms TECHNIQUE: Imaging protocol: MR of the head without and with intravenous contrast. Contrast material: PROHANCE; Contrast volume: 21 ml; Contrast route: INTRAVENOUS (IV); COMPARISON: MRI-Brain W/O FOLL BY WITH 06/19/2019 1:36 PM FINDINGS: Brain: No acute infarct or active demyelination identified on the diffusion-weighted imaging. Cerebral and cerebellar volume are preserved for age. The T2 weighted imaging demonstrates hyperintense lesions in the periventricular white matter, stable since the prior study in keeping with the provided history of multiple sclerosis. No enhancing lesions. Cerebral ventricles: Stable. No ventriculomegaly. Bones/joints: Unremarkable. Paranasal sinuses: Normal as visualized. No acute sinusitis. Mastoid air cells: Normal as visualized. No mastoid effusion. Orbital cavity: Unremarkable. Soft tissues: Unremarkable. IMPRESSION: No evidence of disease progression or active demyelination. Electronically signed by: Lisha Trevino On 10/26/2020 12:43:15 PM
--- NOTE | 2020-10-26 12:54 | REPVR ---
PROCEDURE INFORMATION: Exam: MR Cervical Spine Without and With Contrast Exam date and time: 10/26/2020 11:37 AM Age: 39 years old Clinical indication: Condition or disease; Other: Ms TECHNIQUE: Imaging protocol: Multiplanar magnetic resonance images of the cervical spine without and with contrast. Contrast material: PROHANCE; Contrast volume: 21 ml; Contrast route: INTRAVENOUS (IV); COMPARISON: MRI-C SPINE W/O FOLL BY WITH 06/19/2019 1:36 PM FINDINGS: Vertebrae: Anatomic alignment. No acute fracture seen. Spinal cord: T2 hyperintense lesion is again demonstrated in the anterior left cord at the C5 level. No new or enhancing cord lesions identified. C2-C3: No significant disc disease. No significant spinal stenosis. C3-C4: No significant interval change. Mild disc bulge and left uncovertebral arthropathy. No significant stenoses. C4-C5: No significant interval change. Shallow right paracentral disc protrusion does not contribute to significant canal stenoses. Mild uncovertebral arthropathy without contribution to significant foraminal narrowing. C5-C6: The C5-C6 disc space is developmentally hypoplastic. Mild prevertebral spondylosis again demonstrated at C3-C4, C4-C5 and C6-C7. No significant interval change. Developmentally hypoplastic disc. No stenoses. C6-C7: Right paracentral disc protrusion is similar in size compared to the prior study though increased conspicuity of high-intensity zone. Central spinal canal stenosis is mild. No significant foraminal stenoses. C7-T1: No significant disc disease. No significant spinal stenosis. Soft tissues: Unremarkable. Vertebral arteries: Expected flow voids in the vertebral arteries. IMPRESSION: No evidence of new, progressive or active demyelination. Electronically signed by: Lisha Trevino On 10/26/2020 12:54:10 PM
== END ==
LOC: M PLAIMG 09:45
PROVIDERS: ATTEND Physician Assistant
DX: G35 Multiple sclerosis (principal); M50.323 Other cervical disc degeneration at C6-C7 level; M47.812 Spondylosis without myelopathy or radiculopathy, cervical region
CPT/HCPCS: 70553; 72156; A9576

== ENCOUNTER 2020-11-15 13:46 | Outpatient (CLI) | payer MEDICARE, OTHER ==
[~2020-11-15] VITALS: Ht 180.3 cm; Wt 96.6 kg
[~2020-11-15 13:46] MED LIST changes: -PROHANCE 279.3MG/ML 15ML VIAL ONE
[2020-11-15] MEDS ORDERED: NATALIZUMAB OVER 1 HOUR IV ONE ×2 (14:00)
[2020-11-15 14:09] VITALS: BP 150/101
[2020-11-15 15:35] VITALS: BP 138/77
== END 2020-11-15 15:35 | disposition home or self-care (01) ==
LOC: M INFU 13:46
PROVIDERS: ATTEND Physician Assistant
DX: G35 Multiple sclerosis (principal)
CPT/HCPCS: 96365; J2323

== ENCOUNTER 2020-12-13 13:39 | Outpatient (CLI) | payer MEDICARE, OTHER ==
[~2020-12-13] VITALS: Ht 180.3 cm; Wt 96.6 kg
[2020-12-13 13:57] VITALS: BP 126/66
[2020-12-13] MEDS ORDERED: NATALIZUMAB OVER 1 HOUR IV ONE ×2 (15:30)
[2020-12-13 15:51] VITALS: BP 148/96
== END 2020-12-13 15:50 | disposition home or self-care (01) ==
LOC: M INFU 13:39
PROVIDERS: ATTEND Physician Assistant
DX: G35 Multiple sclerosis (principal)
CPT/HCPCS: 96365; J2323

== ENCOUNTER 2021-01-10 15:14 | Outpatient (CLI) | payer MEDICARE, OTHER ==
[~2021-01-10] VITALS: Ht 180.3 cm; Wt 96.6 kg
[2021-01-10] MEDS ORDERED: NATALIZUMAB OVER 1 HOUR IV ONE ×2 (15:30)
[2021-01-10 16:23] VITALS: BP 135/91
[2021-01-10 17:03] VITALS: BP 136/90
== END 2021-01-10 17:00 | disposition home or self-care (01) ==
LOC: M INFU 15:14
PROVIDERS: ATTEND Nurse Practitioner Family
DX: G35 Multiple sclerosis (principal)
CPT/HCPCS: 96365; J2323

== ENCOUNTER 2021-02-07 14:51 | Outpatient (CLI) | payer MEDICARE, OTHER ==
[~2021-02-07] VITALS: Ht 180.3 cm; Wt 96.6 kg
[2021-02-07 15:05] VITALS: BP 121/71
[2021-02-07] MEDS ORDERED: NATALIZUMAB OVER 1 HOUR IV ONE ×2 (15:30)
[2021-02-07 16:55] VITALS: BP 127/80
== END 2021-02-07 16:55 | disposition home or self-care (01) ==
LOC: M INFU 14:51
PROVIDERS: ATTEND Nurse Practitioner Family
DX: G35 Multiple sclerosis (principal)
CPT/HCPCS: 96365; J2323

== ENCOUNTER 2021-02-19 13:23 | Emergency (ER) | payer MEDICARE, OTHER ==
[~2021-02-19] VITALS: Ht 180.3 cm; Wt 110.4 kg
--- NOTE | 2021-02-19 16:47 | REP ---
INDICATION: trauma to great toe COMPARISON: None. TECHNIQUE: AP, lateral, bilateral oblique views left foot. FINDINGS: The osseous structures and joint spaces are intact and normal. There is no evidence for acute fracture or dislocation. Surrounding soft tissues are unremarkable. No subcutaneous emphysema or radiodense foreign body. IMPRESSION: . No acute fracture or dislocation. <Electronically signed by Manuel Blanchard > 02/19/21 [id number]
[2021-02-19] MEDS ORDERED: ACETAMINOPHEN 500 MG TAB PO ONE (16:55)
[2021-02-19 17:17] VITALS: BP 128/71
== END 2021-02-19 17:19 | disposition home or self-care (01) ==
LOC: M ED 13:23
DX: S90.112A Contusion of left great toe without damage to nail, initial encounter (principal); W22.8XXA Striking against or struck by other objects, initial encounter; Y92.009 Unspecified place in unspecified non-institutional (private) residence as the place of occurrence of the external cause; Y93.9 Activity, unspecified; Y99.9 Unspecified external cause status; G35 Multiple sclerosis; J45.909 Unspecified asthma, uncomplicated; K21.9 Gastro-esophageal reflux disease without esophagitis; Z79.899 Other long term (current) drug therapy

== ENCOUNTER 2021-03-07 15:46 | Outpatient (CLI) | payer MEDICARE, OTHER ==
[~2021-03-07] VITALS: Ht 180.3 cm; Wt 96.6 kg
[~2021-03-07 15:46] MED LIST changes: +NATALIZUMAB OVER 1 HOUR IV ONE
[2021-03-07 16:06] VITALS: BP 144/87
[2021-03-07 17:15] VITALS: BP 130/79
== END 2021-03-07 17:25 | disposition home or self-care (01) ==
LOC: M INFU 15:46
PROVIDERS: ATTEND Nurse Practitioner Family
DX: G35 Multiple sclerosis (principal)
CPT/HCPCS: 96365; J2323

== ENCOUNTER 2021-04-04 15:00 | Outpatient (CLI) | payer MEDICARE, OTHER ==
[~2021-04-04] VITALS: Ht 180.3 cm; Wt 96.6 kg
[2021-04-04 15:24] VITALS: BP 130/70
[2021-04-04 16:30] VITALS: BP 120/72
== END 2021-04-04 16:25 | disposition home or self-care (01) ==
LOC: M INFU 15:00
PROVIDERS: ATTEND Nurse Practitioner Family
DX: G35 Multiple sclerosis (principal)
CPT/HCPCS: 96365; J2323

== ENCOUNTER 2021-05-02 14:47 | Outpatient (CLI) | payer MEDICARE, MEDICAID ==
[~2021-05-02] VITALS: Ht 180.3 cm; Wt 96.6 kg
[~2021-05-02 14:47] MED LIST changes: -NATALIZUMAB OVER 1 HOUR IV ONE
[2021-05-02] MEDS ORDERED: NATALIZUMAB OVER 1 HOUR IV ONE ×2 (15:00)
[2021-05-02 15:03] VITALS: BP 128/83
[2021-05-02 16:10] VITALS: BP 160/84
== END 2021-05-02 16:15 | disposition home or self-care (01) ==
LOC: M INFU 14:47
PROVIDERS: ATTEND Nurse Practitioner Family
DX: G35 Multiple sclerosis (principal)
CPT/HCPCS: 96365; J2323

== ENCOUNTER 2021-06-27 13:57 | Outpatient (CLI) | payer MEDICARE, MEDICAID ==
[~2021-06-27] VITALS: Ht 180.3 cm; Wt 96.0 kg
[2021-06-27 14:37] VITALS: BP 118/78
[2021-06-27] MEDS ORDERED: NS 1,000 ML IV SCH (15:00)
[2021-06-27] MEDS ORDERED: EPINEPHrine (1MG/ML) IV IM PRN (15:00)
[2021-06-27] MEDS ORDERED: diphenhydrAMINE (50MG/ML) IV IV PRN (15:00)
[2021-06-27] MEDS ORDERED: methylPREDNISolone (125 MG/2 ML) IV IV PRN (15:00)
[2021-06-27] MEDS ORDERED: NATALIZUMAB OVER 1 HOUR IV ONE ×2 (15:00)
[2021-06-27] MEDS ORDERED: ALBUTEROL SULFATE (2.5MG/0.5ML) NEB INH PRN (15:00)
[2021-06-27 15:56] VITALS: BP 125/81
== END 2021-06-27 15:55 | disposition home or self-care (01) ==
LOC: M INFU 13:57
PROVIDERS: ATTEND Nurse Practitioner Family
DX: G35 Multiple sclerosis (principal)
CPT/HCPCS: 96365; J2323

== ENCOUNTER 2021-07-25 15:04 | Outpatient (CLI) | payer MEDICARE, MEDICAID ==
[~2021-07-25] VITALS: Ht 180.3 cm; Wt 96.0 kg
[~2021-07-25 15:04] MED LIST changes: +ALBUTEROL SULFATE 2.5 MG/0.5 ML INH NEB SOLN INH PRN; +EPINEPHrine INJ 1 MG/ML 1ML AMP IM PRN; +NATALIZUMAB OVER 1 HOUR IV ONE; +NS 1,000 ML IV SCH; +diphenhydrAMINE 50MG/ML VIAL (J1200) IV PRN; +methylPREDNISolone 125MG 2ML VIAL IV PRN
[2021-07-25 16:36] VITALS: BP 129/81
== END 2021-07-25 16:40 | disposition home or self-care (01) ==
LOC: M INFU 15:04
PROVIDERS: ATTEND Nurse Practitioner Family
DX: G35 Multiple sclerosis (principal)
CPT/HCPCS: 96365; J2323

== ENCOUNTER 2021-08-13 22:57 | Emergency (ER) | payer MEDICARE, MEDICAID ==
[~2021-08-13] VITALS: Ht 180.3 cm; Wt 101.4 kg
[~2021-08-13 22:57] MED LIST changes: -ALBUTEROL SULFATE 2.5 MG/0.5 ML INH NEB SOLN INH PRN; -EPINEPHrine INJ 1 MG/ML 1ML AMP IM PRN; -NATALIZUMAB OVER 1 HOUR IV ONE; -NS 1,000 ML IV SCH; -diphenhydrAMINE 50MG/ML VIAL (J1200) IV PRN; -methylPREDNISolone 125MG 2ML VIAL IV PRN
[2021-08-14] MEDS ORDERED: traMADol 50 MG TAB PO ONE (00:55)
[2021-08-14 01:00] VITALS: BP 126/75
== END 2021-08-14 01:09 | disposition home or self-care (01) ==
LOC: M ED 22:57
DX: S93.401A Sprain of unspecified ligament of right ankle, initial encounter (principal); S93.601A Unspecified sprain of right foot, initial encounter; W19.XXXA Unspecified fall, initial encounter; Y92.410 Unspecified street and highway as the place of occurrence of the external cause; G35 Multiple sclerosis; J45.909 Unspecified asthma, uncomplicated; K21.9 Gastro-esophageal reflux disease without esophagitis

== ENCOUNTER 2021-08-22 12:35 | Outpatient (CLI) | payer MEDICAID, MEDICARE ==
[~2021-08-22] VITALS: Ht 180.3 cm; Wt 108.0 kg
[~2021-08-22 12:35] MED LIST changes: +ALBUTEROL SULFATE 2.5 MG/0.5 ML INH NEB SOLN INH PRN; +EPINEPHrine INJ 1 MG/ML 1ML AMP IM PRN; +diphenhydrAMINE 50MG/ML VIAL (J1200) IV PRN; +methylPREDNISolone 125MG 2ML VIAL IV PRN
[2021-08-22 12:40] VITALS: BP 110/59
[2021-08-22 14:23] VITALS: BP 119/73
[2021-08-22] MEDS ORDERED: NATALIZUMAB OVER 1 HOUR IV ONE ×2 (15:00)
[2021-08-22] MEDS ORDERED: NS 1,000 ML IV SCH (15:00)
== END 2021-08-22 14:25 | disposition home or self-care (01) ==
LOC: M INFU 12:35
PROVIDERS: ATTEND Nurse Practitioner Family
DX: G35 Multiple sclerosis (principal)
CPT/HCPCS: 96365; J2323

== ENCOUNTER 2021-09-19 12:39 | Outpatient (CLI) | payer MEDICARE, MEDICAID ==
[~2021-09-19] VITALS: Ht 180.3 cm; Wt 100.0 kg
[2021-09-19 12:10] VITALS: BP 132/83
[2021-09-19 14:00] VITALS: BP 131/75
[2021-09-19] MEDS ORDERED: NATALIZUMAB OVER 1 HOUR IV ONE ×2 (15:00)
[2021-09-19] MEDS ORDERED: NS 1,000 ML IV SCH (15:00)
== END 2021-09-19 14:00 | disposition home or self-care (01) ==
LOC: M INFU 12:39
PROVIDERS: ATTEND Nurse Practitioner Family
DX: G35 Multiple sclerosis (principal)
CPT/HCPCS: 96365; J2323

== ENCOUNTER 2021-10-17 14:30 | Outpatient (CLI) | payer MEDICARE, OTHER ==
[~2021-10-17] VITALS: Ht 180.3 cm; Wt 108.0 kg
[2021-10-17 14:46] VITALS: BP 129/73
[2021-10-17] MEDS ORDERED: NATALIZUMAB OVER 1 HOUR IV ONE ×2 (15:00)
[2021-10-17] MEDS ORDERED: NS 1,000 ML IV SCH (15:00)
[2021-10-17 16:12] VITALS: BP 115/77
== END 2021-10-17 16:15 | disposition home or self-care (01) ==
LOC: M INFU 14:30
PROVIDERS: ATTEND Nurse Practitioner Family
DX: G35 Multiple sclerosis (principal)
CPT/HCPCS: 96365; J2323

== ENCOUNTER → 2021-11-10 | Outpatient (CLI) | payer MEDICARE, MEDICAID ==
[~2021-11-10] MED LIST changes: -ALBUTEROL SULFATE 2.5 MG/0.5 ML INH NEB SOLN INH PRN; -EPINEPHrine INJ 1 MG/ML 1ML AMP IM PRN; +PROHANCE 279.3MG/ML 15ML VIAL ONE; +PROHANCE 279.3MG/ML 5ML VIAL ONE; -diphenhydrAMINE 50MG/ML VIAL (J1200) IV PRN; -methylPREDNISolone 125MG 2ML VIAL IV PRN
== END ==
LOC: M PLAIMG 12:43
PROVIDERS: ATTEND Physician Assistant
DX: G35 Multiple sclerosis (principal); M50.21 Other cervical disc displacement, high cervical region; M50.223 Other cervical disc displacement at C6-C7 level; M48.02 Spinal stenosis, cervical region; M47.812 Spondylosis without myelopathy or radiculopathy, cervical region
CPT/HCPCS: 70553; 72156; A9576

== ENCOUNTER 2021-11-14 14:45 | Outpatient (CLI) | payer MEDICARE, MEDICAID ==
[~2021-11-14] VITALS: Ht 180.3 cm; Wt 108.4 kg
[~2021-11-14 14:45] MED LIST changes: +ALBUTEROL SULFATE 2.5 MG/0.5 ML INH NEB SOLN INH PRN; +EPINEPHrine INJ 1 MG/ML 1ML AMP IM PRN; -PROHANCE 279.3MG/ML 15ML VIAL ONE; -PROHANCE 279.3MG/ML 5ML VIAL ONE; +diphenhydrAMINE 50MG/ML VIAL (J1200) IV PRN; +methylPREDNISolone 125MG 2ML VIAL IV PRN
[2021-11-14 14:59] VITALS: BP 139/82
[2021-11-14] MEDS ORDERED: NS 1,000 ML IV SCH (15:00)
[2021-11-14] MEDS ORDERED: NATALIZUMAB OVER 1 HOUR IV ONE ×2 (15:00)
[2021-11-14 15:47] VITALS: BP 152/91
== END 2021-11-14 16:00 | disposition home or self-care (01) ==
LOC: M INFU 14:45
PROVIDERS: ATTEND Nurse Practitioner Family
DX: G35 Multiple sclerosis (principal)
CPT/HCPCS: 96365; J2323

== ENCOUNTER 2021-12-12 13:45 | Outpatient (CLI) | payer MEDICAID, MEDICARE, OTHER ==
[~2021-12-12] VITALS: Ht 177.8 cm; Wt 108.0 kg
[~2021-12-12 13:45] MED LIST changes: -ALBUTEROL SULFATE 2.5 MG/0.5 ML INH NEB SOLN INH PRN; -EPINEPHrine INJ 1 MG/ML 1ML AMP IM PRN; -diphenhydrAMINE 50MG/ML VIAL (J1200) IV PRN; -methylPREDNISolone 125MG 2ML VIAL IV PRN
[2021-12-12 13:53] VITALS: BP 139/83
[2021-12-12 15:00] VITALS: BP 126/78
[2021-12-12] MEDS ORDERED: NATALIZUMAB OVER 1 HOUR IV ONE ×2 (15:00)
== END 2021-12-12 15:05 | disposition home or self-care (01) ==
LOC: M INFU 13:45
PROVIDERS: ATTEND Nurse Practitioner Family
DX: G35 Multiple sclerosis (principal)
CPT/HCPCS: 96365; J2323

== ENCOUNTER 2022-01-15 12:45 | Outpatient (CLI) | payer MEDICARE, MEDICAID ==
[~2022-01-15] VITALS: Ht 177.8 cm; Wt 95.5 kg
[2022-01-15 12:45] VITALS: BP 123/65
[~2022-01-15 12:45] MED LIST changes: +NATALIZUMAB OVER 1 HOUR IV ONE
[2022-01-15 14:15] VITALS: BP 118/72
== END 2022-01-15 14:15 | disposition home or self-care (01) ==
LOC: M INFU 12:45
PROVIDERS: ATTEND Nurse Practitioner Family
DX: G35 Multiple sclerosis (principal)
CPT/HCPCS: 96365; J2323

== ENCOUNTER → 2022-02-14 | Outpatient (CLI) | payer MEDICARE, MEDICAID ==
[~2022-02-14] VITALS: Ht 180.3 cm; Wt 108.0 kg
[2022-02-14 12:37] VITALS: BP 119/58
[2022-02-14 14:02] VITALS: BP 127/65
== END ==
LOC: M INFU 12:25
PROVIDERS: ATTEND Nurse Practitioner Family
DX: G35 Multiple sclerosis (principal)
CPT/HCPCS: 96365; J2323

== ENCOUNTER 2022-03-16 13:50 | Outpatient (CLI) | payer MEDICARE, MEDICAID ==
[2022-03-16 13:55] VITALS: BP 126/76
[2022-03-16 15:34] VITALS: BP 134/84
== END 2022-03-16 15:35 | disposition home or self-care (01) ==
LOC: M INFU 13:50
PROVIDERS: ATTEND Nurse Practitioner Family
DX: G35 Multiple sclerosis (principal)
CPT/HCPCS: 96365; J2323

== ENCOUNTER 2022-04-16 12:15 | Outpatient (CLI) | payer MEDICARE, MEDICAID ==
[2022-04-16 12:15] VITALS: BP 139/78
[~2022-04-16 12:15] MED LIST changes: -NATALIZUMAB OVER 1 HOUR IV ONE
[2022-04-16] MEDS ORDERED: NATALIZUMAB OVER 1 HOUR IV ONE ×2 (12:30)
== END 2022-04-16 13:40 | disposition home or self-care (01) ==
LOC: M INFU 12:15
PROVIDERS: ATTEND Nurse Practitioner Family
DX: G35 Multiple sclerosis (principal)
CPT/HCPCS: 96365; J2323

== ENCOUNTER 2022-05-28 12:36 | Outpatient (CLI) | payer MEDICARE, MEDICAID ==
[~2022-05-28] VITALS: Ht 180.3 cm; Wt 108.0 kg
[~2022-05-28 12:36] MED LIST changes: +DRON10CA7 PO; -DRON1CAP3 PO; +NATALIZUMAB OVER 1 HOUR IV ONE
[2022-05-28 12:40] VITALS: BP 124/91
[2022-05-28 13:48] VITALS: BP 132/83
== END 2022-05-28 13:55 | disposition home or self-care (01) ==
LOC: M INFU 12:36
PROVIDERS: ATTEND Physician Assistant
DX: G35 Multiple sclerosis (principal)
CPT/HCPCS: 96365; J2323

== ENCOUNTER 2022-07-09 12:30 | Outpatient (CLI) | payer MEDICARE, MEDICAID ==
[~2022-07-09] VITALS: Ht 180.3 cm; Wt 95.9 kg
[2022-07-09 12:30] VITALS: BP 129/81
[~2022-07-09 12:30] MED LIST changes: +ALBUTEROL SULFATE 2.5MG/0.5ML INH NEB SOLN INH PRN; +EPINEPHrine INJ 1 MG/ML 1ML AMP IM PRN; -NATALIZUMAB OVER 1 HOUR IV ONE; +diphenhydrAMINE 50MG/ML VIAL IV PRN; +methylPREDNISolone 125MG 2ML VIAL IV PRN
[2022-07-09 13:25] VITALS: BP 137/79
[2022-07-09] MEDS ORDERED: NATALIZUMAB OVER 1 HOUR IV ONE ×2 (14:00)
[2022-07-09] MEDS ORDERED: NS 1,000 ML IV SCH (14:00)
== END 2022-07-09 13:25 | disposition home or self-care (01) ==
LOC: M INFU 12:30
PROVIDERS: ATTEND Physician Assistant
DX: G35 Multiple sclerosis (principal)
CPT/HCPCS: 96365; J2323

== ENCOUNTER 2022-09-04 13:20 | Outpatient (CLI) | payer MEDICARE, MEDICAID ==
[~2022-09-04] VITALS: Ht 180.3 cm; Wt 98.9 kg
[~2022-09-04 13:20] MED LIST changes: +NATALIZUMAB OVER 1 HOUR IV ONE; +NS 1,000 ML IV ONE
[2022-09-04 13:28] VITALS: BP 104/64; O2SAT 100
[2022-09-04 15:00] VITALS: BP 113/70; O2SAT 96
== END 2022-09-04 15:00 ==
LOC: M INFU 13:20
PROVIDERS: ATTEND Physician Assistant
DX: G35 Multiple sclerosis (principal)
CPT/HCPCS: 96365; J2323

== ENCOUNTER → 2022-10-01 | Outpatient (CLI) | payer MEDICARE, MEDICAID ==
[~2022-10-01] MED LIST changes: -ALBUTEROL SULFATE 2.5MG/0.5ML INH NEB SOLN INH PRN; -EPINEPHrine INJ 1 MG/ML 1ML AMP IM PRN; -NATALIZUMAB OVER 1 HOUR IV ONE; -NS 1,000 ML IV ONE; -diphenhydrAMINE 50MG/ML VIAL IV PRN; -methylPREDNISolone 125MG 2ML VIAL IV PRN
== END ==
LOC: M INFU 06:04
PROVIDERS: ATTEND Physician Assistant
DX: G35 Multiple sclerosis (principal); Z53.9 Procedure and treatment not carried out, unspecified reason

== ENCOUNTER 2022-10-16 13:00 | Outpatient (CLI) | payer MEDICARE, MEDICAID ==
[~2022-10-16] VITALS: Ht 180.3 cm; Wt 98.9 kg
[~2022-10-16 13:00] MED LIST changes: +ALBUTEROL SULFATE 2.5MG/0.5ML INH NEB SOLN INH PRN; +EPINEPHrine INJ 1 MG/ML 1ML AMP IM PRN; +diphenhydrAMINE 50MG/ML VIAL IV PRN; +methylPREDNISolone 125MG 2ML VIAL IV PRN
[2022-10-16 13:18] VITALS: BP 128/78; O2SAT 100
[2022-10-16] MEDS ORDERED: NS 1,000 ML IV SCH (13:20)
[2022-10-16] MEDS ORDERED: NATALIZUMAB OVER 1 HOUR IV ONE ×2 (13:30)
[2022-10-16 14:36] VITALS: BP 144/87; O2SAT 98
== END 2022-10-16 14:37 | disposition home or self-care (01) ==
LOC: M INFU 13:00
PROVIDERS: ATTEND Physician Assistant
DX: G35 Multiple sclerosis (principal)
CPT/HCPCS: 96365; J2323

== ENCOUNTER 2022-11-27 13:00 | Outpatient (CLI) | payer MEDICARE, MEDICAID ==
[~2022-11-27] VITALS: Ht 180.3 cm; Wt 103.0 kg
[~2022-11-27 13:00] MED LIST changes: +NATALIZUMAB OVER 1 HOUR IV ONE; +NS 1,000 ML IV SCH
[2022-11-27 13:11] VITALS: BP 139/87; TEMP 97.1; O2SAT 98
[2022-11-27 14:40] VITALS: BP 135/93; O2SAT 98
== END 2022-11-27 14:40 ==
LOC: M INFU 13:00
PROVIDERS: ATTEND Physician Assistant
DX: G35 Multiple sclerosis (principal)
CPT/HCPCS: 96365; J2323

== ENCOUNTER → 2022-12-17 | Outpatient (CLI) | payer MEDICARE, MEDICAID ==
[~2022-12-17] MED LIST changes: -ALBUTEROL SULFATE 2.5MG/0.5ML INH NEB SOLN INH PRN; -EPINEPHrine INJ 1 MG/ML 1ML AMP IM PRN; -NATALIZUMAB OVER 1 HOUR IV ONE; -NS 1,000 ML IV SCH; -diphenhydrAMINE 50MG/ML VIAL IV PRN; -methylPREDNISolone 125MG 2ML VIAL IV PRN
== END ==
LOC: M PLAIMG 14:27
PROVIDERS: ATTEND Physician Assistant
DX: G35 Multiple sclerosis (principal)

== ENCOUNTER 2023-01-08 13:00 | Outpatient (CLI) | payer MEDICARE, MEDICAID ==
[~2023-01-08] VITALS: Ht 177.8 cm; Wt 103.0 kg
[~2023-01-08 13:00] MED LIST changes: +ALBUTEROL SULFATE 2.5MG/0.5ML INH NEB SOLN INH PRN; +EPINEPHrine INJ 1 MG/ML 1ML AMP IM PRN; +NATALIZUMAB OVER 1 HOUR IV ONE; +NS 1,000 ML IV SCH; +diphenhydrAMINE 50MG/ML VIAL IV PRN; +methylPREDNISolone 125MG 2ML VIAL IV PRN
[2023-01-08 13:05] VITALS: BP 139/70; O2SAT 98
[2023-01-08 14:30] VITALS: BP 131/72; O2SAT 99
== END 2023-01-08 14:30 ==
LOC: M INFU 13:00
PROVIDERS: ATTEND Physician Assistant
DX: G35 Multiple sclerosis (principal)
CPT/HCPCS: 96365; J2323

== ENCOUNTER 2023-02-19 07:37 | Outpatient (CLI) | payer MEDICARE, MEDICAID ==
[~2023-02-19] VITALS: Ht 180.3 cm; Wt 101.0 kg
[~2023-02-19 07:37] MED LIST changes: -NATALIZUMAB OVER 1 HOUR IV ONE
[2023-02-19 07:55] VITALS: BP 153/97; O2SAT 97
[2023-02-19] MEDS ORDERED: NATALIZUMAB OVER 1 HOUR IV ONE ×2 (08:00)
[2023-02-19 09:45] VITALS: BP 148/99; O2SAT 96
== END 2023-02-19 09:45 | disposition home or self-care (01) ==
LOC: M INFU 07:37
PROVIDERS: ATTEND Physician Assistant
DX: G35 Multiple sclerosis (principal)
CPT/HCPCS: 96365; J2323

== ENCOUNTER → 2023-03-25 | Outpatient (REF) | payer MEDICARE, MEDICAID ==
[~2023-03-25] MED LIST changes: -ALBUTEROL SULFATE 2.5MG/0.5ML INH NEB SOLN INH PRN; -EPINEPHrine INJ 1 MG/ML 1ML AMP IM PRN; -NS 1,000 ML IV SCH; -diphenhydrAMINE 50MG/ML VIAL IV PRN; -methylPREDNISolone 125MG 2ML VIAL IV PRN
== END ==
LOC: M LAB REF 15:57
PROVIDERS: ATTEND Physician Assistant
DX: B34.9 Viral infection, unspecified (principal)

== ENCOUNTER → 2023-04-02 | Outpatient (CLI) | payer MEDICARE, MEDICAID | LOC: M LAB 10:02 | PROVIDERS: ATTEND Physician Assistant | DX: G35 Multiple sclerosis (principal) ==

== ENCOUNTER 2023-04-09 12:00 | Outpatient (CLI) | payer MEDICARE, MEDICAID ==
[~2023-04-09] VITALS: Ht 180.3 cm; Wt 102.0 kg
[2023-04-09 12:00] VITALS: BP 143/86; TEMP 98.1; O2SAT 97
[~2023-04-09 12:00] MED LIST changes: +ALBUTEROL SULFATE 2.5MG/0.5ML INH NEB SOLN INH PRN; +EPINEPHrine INJ 1 MG/ML 1ML AMP IM PRN; +diphenhydrAMINE 50MG/ML VIAL IV PRN; +methylPREDNISolone 125MG 2ML VIAL IV PRN
[2023-04-09] MEDS: NATALIZUMAB OVER 1 HOUR IV ONE (12:20)
[2023-04-09] MEDS: NS 1,000 ML IV SCH (12:20)
[2023-04-09 13:17] VITALS: BP 132/91; O2SAT 99
== END 2023-04-09 13:20 ==
LOC: M INFU 12:00
PROVIDERS: ATTEND Physician Assistant
DX: G35 Multiple sclerosis (principal)
CPT/HCPCS: 96365; J2323

== ENCOUNTER 2023-05-21 09:15 | Outpatient (CLI) | payer MEDICARE, MEDICAID ==
[~2023-05-21] VITALS: Ht 180.3 cm; Wt 101.0 kg
[2023-05-21 09:15] VITALS: BP 132/78; TEMP 97.1; O2SAT 97
[~2023-05-21 09:15] MED LIST changes: +NS 1,000 ML IV SCH
[2023-05-21] MEDS: NATALIZUMAB OVER 1 HOUR IV ONE (09:45)
[2023-05-21 10:55] VITALS: BP 152/86; O2SAT 98
== END 2023-05-21 10:05 | disposition home or self-care (01) ==
LOC: M INFU 09:15
PROVIDERS: ATTEND Physician Assistant
DX: G35 Multiple sclerosis (principal)
CPT/HCPCS: 96365; J2323

== ENCOUNTER 2023-07-02 10:04 | Outpatient (CLI) | payer MEDICARE, MEDICAID ==
[2023-07-02 10:10] VITALS: BP 118/98; O2SAT 96
[2023-07-02] MEDS: NATALIZUMAB OVER 1 HOUR IV ONE (10:50)
[2023-07-02 11:50] VITALS: BP 118/76; O2SAT 96
== END 2023-07-02 12:10 | disposition home or self-care (01) ==
LOC: M INFU 10:04
PROVIDERS: ATTEND Physician Assistant
DX: G35 Multiple sclerosis (principal)
CPT/HCPCS: 96365; J2323

== ENCOUNTER 2023-08-13 09:11 | Outpatient (CLI) | payer MEDICARE, MEDICAID ==
[~2023-08-13] VITALS: Ht 180.3 cm; Wt 103.0 kg
[2023-08-13 09:15] VITALS: BP 125/78; O2SAT 95
[2023-08-13] MEDS: NATALIZUMAB OVER 1 HOUR IV ONE (09:44)
[2023-08-13 10:55] VITALS: BP 127/78; O2SAT 95
== END 2023-08-13 10:55 ==
LOC: M INFU 09:11
PROVIDERS: ATTEND Physician Assistant
DX: G35 Multiple sclerosis (principal)
CPT/HCPCS: 96365; J2323

== ENCOUNTER 2023-09-24 10:45 | Outpatient (CLI) | payer MEDICARE, MEDICAID ==
[~2023-09-24] VITALS: Ht 180.3 cm; Wt 105.6 kg
[2023-09-24 10:50] VITALS: BP 131/84; O2SAT 97
[2023-09-24] MEDS: NATALIZUMAB OVER 1 HOUR IV ONE (11:08)
[2023-09-24 12:14] VITALS: BP 119/76; O2SAT 98
== END 2023-09-24 12:20 ==
LOC: M INFU 10:45
PROVIDERS: ATTEND Physician Assistant
DX: G35 Multiple sclerosis (principal)
CPT/HCPCS: 96365; J2323

== ENCOUNTER 2023-11-05 09:00 | Outpatient (CLI) | payer MEDICARE, MEDICAID ==
[~2023-11-05] VITALS: Ht 180.3 cm; Wt 113.6 kg
[2023-11-05 09:38] VITALS: BP 127/90; O2SAT 98
[2023-11-05] MEDS: NATALIZUMAB OVER 1 HOUR IV ONE (09:48)
[2023-11-05 10:52] VITALS: BP 131/73; O2SAT 99
== END 2023-11-05 10:55 ==
LOC: M INFU 09:00
PROVIDERS: ATTEND Physician Assistant
DX: G35 Multiple sclerosis (principal)
CPT/HCPCS: 96365; J2323

== ENCOUNTER 2023-12-17 10:52 | Outpatient (CLI) | payer MEDICARE, MEDICAID ==
[~2023-12-17] VITALS: Ht 180.3 cm; Wt 116.7 kg
[2023-12-17 11:00] VITALS: BP 145/88; O2SAT 97
[2023-12-17] MEDS: NATALIZUMAB OVER 1 HOUR IV ONE (11:49)
== END 2023-12-17 13:00 | disposition home or self-care (01) ==
LOC: M INFU 10:52
PROVIDERS: ATTEND Physician Assistant
DX: G35 Multiple sclerosis (principal)
CPT/HCPCS: 96365; J2323

== ENCOUNTER 2024-01-28 11:00 | Outpatient (CLI) | payer MEDICARE, MEDICAID ==
[~2024-01-28] VITALS: Ht 180.3 cm; Wt 115.9 kg
[2024-01-28 11:11] VITALS: BP 139/82; O2SAT 96
[2024-01-28] MEDS: NATALIZUMAB OVER 1 HOUR IV ONE (11:49)
[2024-01-28 12:45] VITALS: BP 131/89; O2SAT 98
== END 2024-01-28 13:00 ==
LOC: M INFU 11:00
PROVIDERS: ATTEND Physician Assistant
DX: G35 Multiple sclerosis (principal)
CPT/HCPCS: 96365; J2323

== ENCOUNTER → 2024-03-18 | Outpatient (CLI) | payer MEDICARE, MEDICAID ==
[~2024-03-18] VITALS: Ht 182.9 cm; Wt 118.2 kg
[~2024-03-18] MED LIST changes: +NS (Normal Saline) 0.9% 1,000 ML IV SCH; -NS 1,000 ML IV SCH
[2024-03-18 11:30] VITALS: BP 165/90; O2SAT 97
[2024-03-18] MEDS: NATALIZUMAB OVER 1 HOUR IV ONE (12:16)
[2024-03-18 13:28] VITALS: BP 142/88; O2SAT 98
== END ==
LOC: M INFU 11:27
PROVIDERS: ATTEND Physician Assistant
DX: G35 Multiple sclerosis (principal)
CPT/HCPCS: 96365; J2323

== ENCOUNTER 2024-04-29 10:20 | Outpatient (CLI) | payer MEDICARE, MEDICAID ==
[~2024-04-29] VITALS: Ht 180.3 cm; Wt 122.7 kg
[2024-04-29 10:30] VITALS: BP 126/77; O2SAT 98
[2024-04-29] MEDS: NATALIZUMAB OVER 1 HOUR IV ONE (11:18)
== END 2024-04-29 12:30 ==
LOC: M INFU 10:20
PROVIDERS: ATTEND Physician Assistant
DX: G35 Multiple sclerosis (principal)
CPT/HCPCS: 96365; J2323

== ENCOUNTER 2024-06-10 10:20 | Outpatient (CLI) | payer MEDICARE, MEDICAID ==
[~2024-06-10] VITALS: Ht 180.3 cm; Wt 118.2 kg
[~2024-06-10 10:20] MED LIST changes: +ALBUTEROL SULFATE 2.5MG/0.5ML INH CONCENTRATE NEB SOLN INH PRN; -ALBUTEROL SULFATE 2.5MG/0.5ML INH NEB SOLN INH PRN; -DRON10CA7 PO; +DRON10CA8 PO
[2024-06-10 10:30] VITALS: BP 127/81; O2SAT 98
[2024-06-10] MEDS: NATALIZUMAB OVER 1 HOUR IV ONE (11:02)
[2024-06-10 12:15] VITALS: BP 138/91; O2SAT 98
== END 2024-06-10 12:10 ==
LOC: M INFU 10:20
PROVIDERS: ATTEND Physician Assistant
DX: G35 Multiple sclerosis (principal)
CPT/HCPCS: 96365; J2323

== ENCOUNTER 2024-09-07 10:00 | Outpatient (CLI) | payer MEDICARE, MEDICAID ==
[~2024-09-07] VITALS: Ht 180.3 cm; Wt 118.2 kg
[2024-09-07 10:00] VITALS: BP 129/86; O2SAT 96
[~2024-09-07 10:00] MED LIST changes: +ALBUTEROL SULFATE 2.5 MG/0.5 ML INH CONCENTRATE NEB SOLN INH PRN; -ALBUTEROL SULFATE 2.5MG/0.5ML INH CONCENTRATE NEB SOLN INH PRN; +diphenhydrAMINE 50 MG/ML VIAL IV PRN; -diphenhydrAMINE 50MG/ML VIAL IV PRN; -methylPREDNISolone 125MG 2ML VIAL IV PRN
[2024-09-07] MEDS: NATALIZUMAB OVER 1 HOUR IV ONE (10:44)
[2024-09-07 11:50] VITALS: BP 121/82; O2SAT 95
== END 2024-09-07 12:00 ==
LOC: M INFU 10:00
PROVIDERS: ATTEND Physician Assistant
DX: G35 Multiple sclerosis (principal)
CPT/HCPCS: 96365; J2323

== ENCOUNTER → 2024-09-12 | Outpatient (CLI) | payer MEDICARE, MEDICAID ==
[~2024-09-12] MED LIST changes: -ALBUTEROL SULFATE 2.5 MG/0.5 ML INH CONCENTRATE NEB SOLN INH PRN; -EPINEPHrine INJ 1 MG/ML 1ML AMP IM PRN; -NS (Normal Saline) 0.9% 1,000 ML IV SCH; -diphenhydrAMINE 50 MG/ML VIAL IV PRN
[2024-09-12 12:03] LABS: APPEARANCE, URINE CLEAR (CLEAR); BACTERIA, URINE AUTO NEGATIVE (NEGATIVE); BILIRUBIN, URINE AUTO NEGATIVE (NEGATIVE); BLOOD, URINE BLOOD NEGATIVE (NEGATIVE); GLUCOSE, URINE (UA) AUTO NEGATIVE (NEGATIVE); KETONE, URINE AUTO NEGATIVE (NEGATIVE); LEUKOCYTE ESTERASE, URINE AUTO NEGATIVE (NEGATIVE); MUCUS, URINE SMALL (NEGATIVE); NITRITE, URINE AUTO NEGATIVE (NEGATIVE); PROTEIN, URINE AUTO NEGATIVE (NEGATIVE); RBC, URINE AUTO 0 /HPF (0-3); SPECIFIC GRAVITY URINE AUTO 1.014 (1.002-1.035); SQUAMOUS EPITHELIAL CELL UR AU 0 /HPF (0-6); UROBILINOGEN, URINE AUTO 0.2 mg/dL (0.0-2.0); WBC, URINE AUTO 0 /HPF (0-3)
[2024-09-12 12:04] LABS: PLATELET COUNT, AUTOMATED 207 10^3/uL (150-450)
[2024-09-12 12:36] LABS: ESTIMATED AVERAGE GLUCOSE 97.0 MG/DL (60-110)
[2024-09-12 12:41] LABS: ALT/SGPT 72 U/L (7.0-40); AST/SGOT 37 U/L (<34); CALCIUM LEVEL 8.9 MG/DL (8.5-10.1); CARBON DIOXIDE LEVEL 27 MMOL/L (20-31); CHLORIDE LEVEL 105 MMOL/L (98-107); CHOLESTEROL LEVEL 230 MG/DL (<200); CHOLESTEROL RISK RATIO 7.34 (<5); CREATININE FOR GFR 0.96 MG/DL (0.70-1.30); GLOMERULAR FILTRATION RATE > 90.0 (>60); LDL CHOLESTEROL 156.1 MG/DL (<100); NON-HDL-C 198.7 MG/DL; POTASSIUM SERUM 4.1 MMOL/L (3.5-5.1); SODIUM LEVEL 142 MMOL/L (136-145); TRIGLYCERIDES LEVEL 213 MG/DL (<150)
== END ==
LOC: M LAB 11:28
PROVIDERS: ATTEND Internal Medicine
DX: G35 Multiple sclerosis (principal); Z79.899 Other long term (current) drug therapy

== ENCOUNTER 2024-10-20 11:34 | Outpatient (CLI) | payer MEDICARE, MEDICAID ==
[~2024-10-20] VITALS: Ht 180.3 cm; Wt 118.2 kg
[2024-10-20 11:30] VITALS: BP 134/87; O2SAT 99
[~2024-10-20 11:34] MED LIST changes: +ALBUTEROL SULFATE 2.5 MG/0.5 ML INH CONCENTRATE NEB SOLN INH PRN; +EPINEPHrine INJ 1 MG/ML 1ML AMP IM PRN; +NS (Normal Saline) 0.9% 1,000 ML IV SCH; +diphenhydrAMINE 50 MG/ML VIAL IV PRN
[2024-10-20] MEDS: NATALIZUMAB OVER 1 HOUR IV ONE (12:28)
[2024-10-20 13:35] VITALS: BP 162/87; O2SAT 95
== END 2024-10-20 13:40 ==
LOC: M INFU 11:34
PROVIDERS: ATTEND Physician Assistant
DX: G35 Multiple sclerosis (principal)
CPT/HCPCS: 96365; J2323

== ENCOUNTER 2024-12-01 11:29 | Outpatient (CLI) | payer MEDICARE, MEDICAID ==
[~2024-12-01] VITALS: Ht 180.3 cm; Wt 113.6 kg
[2024-12-01 11:45] VITALS: BP 126/89; O2SAT 99
[2024-12-01] MEDS: NATALIZUMAB OVER 1 HOUR IV ONE (12:40)
[2024-12-01 13:48] VITALS: BP 123/84; O2SAT 96
== END 2025-01-12 13:05 | disposition home or self-care (01) ==
LOC: M INFU 11:29
PROVIDERS: ATTEND Physician Assistant
DX: G35.D Multiple sclerosis, unspecified (principal)
CPT/HCPCS: 96365; J2323

== ENCOUNTER → 2025-01-12 | Outpatient (CLI) | payer MEDICARE, MEDICAID ==
[~2025-01-12] VITALS: Ht 180.3 cm; Wt 115.9 kg
[2025-01-12 11:40] VITALS: BP 136/86; O2SAT 99
[2025-01-12] MEDS: NATALIZUMAB OVER 1 HOUR IV ONE (12:06)
[2025-01-12 13:00] VITALS: BP 142/88; O2SAT 99
== END ==
LOC: M INFU 11:21
PROVIDERS: ATTEND Physician Assistant
DX: G35.A Relapsing-remitting multiple sclerosis (principal)
CPT/HCPCS: 96365; J2323